=== PATIENT | male | born 1950 | race Caucasian/White ===

== ENCOUNTER 2017-09-30 19:10 | Observation (INO) ==
[2017-09-30] MEDS ORDERED: Aspirin 81 MG TAB.CHEW PO ONE (19:45)
[2017-09-30] MEDS ORDERED: Nitroglycerin 1 INCH/GM PACKET TP ONE (19:45)
--- NOTE | 2017-09-30 19:50 | Emergency Department Note ---
Disposition Clinical Impression: Chest pain Qualifiers: Chest pain type: unspecified Qualified Code(s): R07.9 - Chest pain, unspecified Hypertension Qualifiers: Hypertension type: unspecified Qualified Code(s): I10 - Essential (primary) hypertension Disposition: Admitted As Inpatient Condition: Fair Time of Disposition: 21:24 Chest Pain HPI - General Chief Complaint: ED Chest Pain Stated Complaint: chest pain Time Seen by Provider: 09/30/17 19:26 Source: patient, family Mode of arrival: ambulatory Limitations: no limitations Vital Signs Reviewed: Yes Nursing Notes Reviewed: Yes - History of Present Illness HPI Narrative: 67-year-old male with a history of hypertension diabetes ACS status post CABG and stents on aspirin presents for evaluation of chest pain. Patient states it symptom onset was last night and has been intermittent since then. Patient noted left-sided chest pressure without radiation. Nonexertional. No aggravating or alleviating symptoms noted. Patient states that he has not had any recent cardiac intervention. Denies any nausea vomiting or diaphoresis. No dyspnea. Denies any fevers or cough. Severity scale (1-10): 7 - Related Data Home Medications Medication Instructions Recorded Confirmed Albuterol Sulfate [Proventil Hfa] 2 puff IH Q4H PRN 05/08/15 09/30/17 Aspirin Enteric Coated [Aspirin EC] 81 mg PO DAILY 05/08/15 09/30/17 Colchicine [Colcrys] 0.6 mg PO TID PRN 05/08/15 09/30/17 Hydrocodone/Acetaminophen [[place] 1 tab PO BID PRN 05/08/15 09/30/17 5-325 Tablet] Losartan [Cozaar] 25 mg PO DAILY 05/08/15 09/30/17 Pantoprazole Sodium [Protonix] 40 mg PO QAM 05/08/15 09/30/17 Zolpidem [Ambien] 5 mg PO HS 05/08/15 09/30/17 Glimepiride [Amaryl] 4 mg PO BID 11/18/15 09/30/17 Baclofen [Lioresal] 10 mg PO BID PRN 03/22/16 09/30/17 Allopurinol [Zyloprim] 100 mg PO DAILY 07/12/16 09/30/17 Insulin DETEMIR [Levemir Flextouch] 50 unit SQ HS 07/12/16 09/30/17 Budesonide/Formoterol 160/4.5 2 puff IH BIDR 12/20/16 09/30/17 [Symbicort 160/4.5] Ranitidine HCl [Heartburn Relief] 150 mg PO BID 12/20/16 09/30/17 Gabapentin [Neurontin] 600 mg PO TID 02/28/17 09/30/17 Ezetimibe [Zetia] 10 mg PO DAILY 09/30/17 09/30/17 Fluticasone Propionate Nasal 50 mcg NS BID 09/30/17 09/30/17 [Flonase] Insulin ASPART [Novolog Flexpen] 0 unit SQ TIDAC 09/30/17 09/30/17 Loratadine [Claritin] 10 mg PO DAILY 09/30/17 09/30/17 Metoprolol XL (24 HR) Succ [Toprol 50 mg PO DAILY 09/30/17 09/30/17 XL] Montelukast [Singulair] 10 mg PO DAILY 09/30/17 09/30/17 Allergies Allergy/AdvReac Type Severity Reaction Status Date / Time niacin AdvReac Unknown Flushing Verified 02/28/17 10:19 nitroglycerin AdvReac Unknown Hypotension Verified 02/28/17 10:19 Oxycodone AdvReac Unknown Agitated Verified 02/28/17 10:19 Penicillins AdvReac Unknown Hives Verified 02/28/17 10:19 AMANDO Inhibitors AdvReac Cough Verified 11/13/16 18:34 atorvastatin AdvReac Diarrhea Verified 11/13/16 18:34 ezetimibe [From Zetia] AdvReac Dizziness Verified 11/13/16 18:34 simvastatin AdvReac Dizziness Verified 11/13/16 18:34 All systems ED: reviewed and negative except as stated. Constitutional: Denies: fever Cardiovascular: Reports: chest pain Respiratory: Denies: cough, dyspnea Gastrointestinal: Denies: abdominal pain, nausea, vomiting Chest Pain PMH - Past Medical History Medical history: Reports: arthritis, asthma, coronary artery disease, diabetes, GERD, hyperlipidemia, hypertension Psychiatric history: Reports: anxiety - Social History Smoking Status: Former smoker Alcohol use: Reports: occasionally Drug use: Reports: none Physical Exam - General Limitations: no limitations General appearance: alert, in no apparent distress - Head Head exam: atraumatic, normocephalic, normal inspection - Eye Eye exam: Present: normal appearance, PERRL, EOMI - ENT ENT exam: normal exam, normal oropharynx, mucous membranes moist - Neck Neck exam: Present: normal inspection, full ROM, trachea midline - Chest Chest inspection: Present: normal inspection, symmetric chest wall rise. Absent : tenderness - Respiratory Respiratory exam: Present: normal lung sounds bilaterally. Absent: respiratory distress - Cardiovascular Cardiovascular exam: Present: regular rate, normal rhythm. Absent: systolic murmur - Abdominal Exam Abdominal exam: Present: soft, Non-Tender - Extremities Exam Extremities exam: Present: normal inspection. Absent: pedal edema - Expanded Lower Extremity Exam Neurovascular/Tendon exam: Present: normal capillary refill - Neurological Exam Neurological exam: Present: alert, oriented X3 - Skin Skin exam: Present: warm, dry, intact, normal color Course - Reevaluation(s) Reevaluation #1: Patient seen and examined. Patient states his pain has improved. Patient's blood pressure also responded well to nitroglycerin. Time: 21:24 Vital Signs Temperature 97.8 F 09/30/17 19:11 Pulse Rate 79 09/30/17 19:11 Respiratory Rate 18 09/30/17 19:11 Blood Pressure 210/107 09/30/17 19:11 O2 Sat by Pulse Oximetry 97 09/30/17 19:11 Temperature 97.8 F 09/30/17 19:11 Pulse Rate 82 09/30/17 20:13 Respiratory Rate 16 09/30/17 21:19 Blood Pressure 129/55 09/30/17 21:19 O2 Sat by Pulse Oximetry 96 09/30/17 20:13 Oxygen Delivery Oxygen Delivery Room Air Chest Pain - [facility] Narrative Medical decision making narrative: Patient presented with chief complaint of chest pain. Patient has have a concerning cardiac history. A single troponin was not sufficient to rule out his ACS. Patient did [facility] Patient was treated with nitroglycerin and aspirin. Patient was pain-free following the nitroglycerin. Patient's blood pressure also improved. Given the patient's risk factors as well as elevated heart score. The patient will be admitted to hospice for further evaluation and monitoring. She is pain is not consistent with pulmonary Mozer. Patient's pain is most consistent with his well-established ACS. Patient was not placed on heparin due to no active chest pain as well as negative troponin. - Lab Data Lab results reviewed: Yes I reviewed the patient's lab results. Result diagrams: 09/30/17 19:55 09/30/17 19:55 Lab Results 09/30/17 09/30/17 09/30/17 Range/Units 19:55 19:55 19:55 WBC 9.6 (4.3-11.1) K/mcL RBC 5.16 (4.19-5.50) M/mcL Hgb 15.2 (12.9-16.9) g/dL Hct 45.3 (37.5-50.1) % MCV 87.8 (83.0-100.0) fL MCH 29.5 (28.0-33.3) pg MCHC 33.6 (31.6-35.5) g/dL RDW 13.0 (11.5-14.5) % Plt Count 136 L (140-400) K/mcL MPV 13.0 H (9.4-12.4) fL Immature Gran % 0.7 (0-4) % Seg Neutrophils % 52.4 % Lymphocytes % 36.2 % Monocytes % 7.9 % Eosinophils % 2.0 % Basophils % 0.8 % Neutrophils # 5.0 (1.6-8.9) K/mcL Lymphocytes # 3.5 (0.6-4.6) K/mcL Monocytes # 0.8 (0.0-1.3) K/mcL Eosinophils # 0.2 (0.0-0.6) K/mcL Basophils # 0.1 (0.0-0.2) K/mcL Sodium 138 (136-145) mEq/L Potassium 3.9 (3.5-5.1) mEq/L Chloride 104 (98-107) mEq/L Carbon Dioxide 24 (23-29) mEq/L BUN 14 (8-23) mg/dL Creatinine 1.27 (0.70-1.30) mg/dL Est GFR ( Amer) > 60 (> 60) Est GFR (Non-Af Amer) 56 L (> 60) BUN/Creatinine Ratio 11 (6-26) Glucose 178 H (70-105) mg/dL Calculated Osmolality 291 (280-300) Calcium 9.2 (8.6-10.3) mg/dL Troponin I < 0.03 (< 0.04) ng/mL - Radiology Data Radiology results reviewed: Yes I reviewed the patient's radiology results. - EKG Data EKG attestation: Yes I reviewed and interpreted this EKG. EKG shows normal: sinus rhythm Rate: normal Rhythm: NSR, PVC's Tiro/QRS: normal Q waves: III, aVF T wave inversions noted in: v1, v2, v3 When compared to previous EKG there are: changes noted Interpretation: no acute changes, nonspecific ST-T wave changes Heart Score - Score History: Moderately Suspicious EKG: Non Specific repolarisation Disturbance Age: Greater than 65 Risk Factors: Equal/Greater than 3 risk factor or history of atherosclerotic disease Troponin: Less than normal limit HEART Score Total: 6 S.B.A.R. - S.B.A.RJohn Situation: Demographics Background: Presenting Complaint Assessment: Vital Signs, Course and respsone to treatment, Patient/Family Expectation Recommendation: Barrier(s) to disposition, Recommendation based on pending studies, treatments, or consults S.B.A.RJohn Report Given to: Dr. Morrow S.B.A.RJohn Repor Time: 21:00 Attestation Statement - Attestation Attestation: I examined this patient and my medical decision-making was reviewed with the Resident Physician, Dr. Howard. I agree with the documented findings, disposition and treatment plan as described except to the extent set forth below. Patient is a 67-year-old elderly white male with history of hypertension, diabetes, known urinary disease who presents to emergency today with left-sided chest pain. Pain is nonradiating and not associated with any other symptoms. Patient states pain usually comes on with walking. Patient's been having pain intermittently off and on since yesterday the last episode was a few hours ago. I agree patient's physical exam findings as documented. Patient with elevated blood pressure on arrival. Patient's EKG documented on chart. No sign of STEMI. Patient received aspirin and Nitropaste with resolution of pain. Patient's laboratory evaluation and chest x-ray within normal limits. Patient will be admitted for further evaluation of chest pain case was discussed with the hospitalist who accepted patient for admission.
[2017-09-30 20:03] LABS: Basophils # 0.1 K/mcL (0.0-0.2); Basophils % 0.8 %; Eosinophils # 0.2 K/mcL (0.0-0.6); Hematocrit 45.3 % (37.5-50.1); Hemoglobin 15.2 g/dL (12.9-16.9); Immature Granulocytes % 0.7 % (0-4); Lymphocytes # 3.5 K/mcL (0.6-4.6); Lymphocytes % 36.2 %; Mean Corpuscular HGB Conc 33.6 g/dL (31.6-35.5); Mean Corpuscular Hemoglobin 29.5 pg (28.0-33.3); Mean Corpuscular Volume 87.8 fL (83.0-100.0); Monocytes # 0.8 K/mcL (0.0-1.3); Monocytes % 7.9 %; Platelet Count 136 K/mcL (140-400); Red Blood Count 5.16 M/mcL (4.19-5.50); Segmented Neutrophils % 52.4 %
[2017-09-30 20:42] LABS: BUN/Creatinine Ratio 11 (6-26); Blood Urea Nitrogen 14 mg/dL (8-23); Calcium 9.2 mg/dL (8.6-10.3); Carbon Dioxide 24 mEq/L (23-29); Chloride 104 mEq/L (98-107); Glucose 178 mg/dL (70-105); Osmolality,Calculated 291 (280-300); Potassium 3.9 mEq/L (3.5-5.1); Sodium 138 mEq/L (136-145); eGFR For African Americans > 60 (> 60); eGFR For Non-African Americans 56 (> 60)
[2017-09-30] MEDS ORDERED: Baclofen 10 MG TABLET PO PRN (21:42)
[2017-09-30] MEDS ORDERED: *HR* HYDROcodone/Acet 5/325 mg TABLET PO PRN (21:42)
[2017-09-30] MEDS ORDERED: Colchicine 0.6 MG TABLET PO PRN (21:42)
[2017-09-30] MEDS ORDERED: *HR* Dextrose 50 % in Water (Syg) 50 ML SYRINGE IVP PRN (21:46)
[2017-09-30] MEDS ORDERED: D5% in Water 1,000 ML IVC PRN (21:46)
[2017-09-30] MEDS ORDERED: Dextrose Gel 15 GM/37.5 ML TUBE PO PRN ×4 (21:46→21:49)
--- NOTE | 2017-09-30 21:53 | Internal Med History&Physical ---
Date of Encounter: 09/30/17 Time of Encounter: 21:51 Assessment and Plan (1) Chest pain Current visit: Yes Status: Acute trend trop, CP appears atypical and associated with position changes repeat EKG in the a.m pending CXR results tele further management pending inpatient course Qualifiers: Chest pain type: precordial pain Qualified Code(s): R07.2 - Precordial pain (2) CAD (coronary artery disease) Current visit: Yes Status: Acute known cad s/p stent, CABG Qualifiers: Associated angina: without angina Qualified Code(s): I25.810 - Atherosclerosis of coronary artery bypass graft(s) without angina pectoris (3) Hypertension Current visit: Yes Status: Acute continue BP med Qualifiers: Hypertension type: essential hypertension Qualified Code(s): I10 - Essential (primary) hypertension (4) Diabetes mellitus Current visit: Yes Status: Acute continue levemir, ISS Qualifiers: Qualified Code(s): E11.9 - Type 2 diabetes mellitus without complications; Z79.4 - alf (current) use of insulin; Z79.4 - manager long term care (current) use of insulin; Z79.4 - manager long term care (current) use of insulin; Z79.4 - alf (current ) use of insulin Internal Medicine - H&P: HPI Chief complaint: atypical CP History of present illness: Mr. Gomez is a 67 year old male with hx of DMII, HTN. CAD s/p stents, CABG 5 years ago at [facility] who follows with Dr Dave presents for observation of atypical chest pain. Described left sided chest pain since yesterday evening , comes and goes, worse with leaning on left elbow, worse with bending over to tie shoe lace, lasting for seconds - seems positional but given his cardiac hx, was admitted for observation. EKG personally reviewed with rate 86, T inversions along anterior lead. CXR completed with read pending, unable to pull images up on PACS Past Med Surg Social Fam HX - Past Medical History Medical history: arthritis, asthma, coronary artery disease, diabetes, GERD, hyperlipidemia, hypertension Psychiatric history: anxiety - Past Surgical History Surgical History: other (CABG) - Social History Smoking Status: Former smoker Smokeless Tobacco Status: No Alcohol use: occasionally Drug use: none - Family History Mother Living Status: Hx Family Cardiac Disorders: Yes Hx Family Cancer: Yes Internal Medicine - H&P: Meds Albuterol Sulfate [Proventil Hfa] 2 puff IH Q4H PRN 05/08/15 [History] Aspirin Enteric Coated [Aspirin EC] 81 mg PO DAILY 05/08/15 [History] Colchicine [Colcrys] 0.6 mg PO TID PRN 05/08/15 [History] Hydrocodone/Acetaminophen [[place] 5-325 Tablet] 1 tab PO BID PRN 05/08/15 [ History] Losartan [Cozaar] 25 mg PO DAILY 05/08/15 [History] Pantoprazole Sodium [Protonix] 40 mg PO QAM 05/08/15 [History] Zolpidem [Ambien] 5 mg PO HS 05/08/15 [History] Glimepiride [Amaryl] 4 mg PO BID 11/18/15 [History] Baclofen [Lioresal] 10 mg PO BID PRN 03/22/16 [History] Allopurinol [Zyloprim] 100 mg PO DAILY 07/12/16 [History] Insulin DETEMIR [Levemir Flextouch] 50 unit SQ HS 07/12/16 [History] Budesonide/Formoterol 160/4.5 [Symbicort 160/4.5] 2 puff IH BIDR 12/20/16 [ History] Ranitidine HCl [Heartburn Relief] 150 mg PO BID 12/20/16 [History] Gabapentin [Neurontin] 600 mg PO TID 02/28/17 [History] Ezetimibe [Zetia] 10 mg PO DAILY 09/30/17 [History] Fluticasone Propionate Nasal [Flonase] 50 mcg NS BID 09/30/17 [History] Insulin ASPART [Novolog Flexpen] 0 unit SQ TIDAC 09/30/17 [History] Loratadine [Claritin] 10 mg PO DAILY 09/30/17 [History] Metoprolol XL (24 HR) Succ [Toprol XL] 50 mg PO DAILY 09/30/17 [History] Montelukast [Singulair] 10 mg PO DAILY 09/30/17 [History] 3 Allergy/AdvReac Type Severity Reaction Status Date / Time niacin AdvReac Unknown [place] Verified 02/28/17 10:19 nitroglycerin AdvReac Unknown Hypotension Verified 02/28/17 10:19 Oxycodone AdvReac Unknown Agitated Verified 02/28/17 10:19 Penicillins AdvReac Unknown Hives Verified 02/28/17 10:19 AMANDO Inhibitors AdvReac Cough Verified 11/13/16 18:34 atorvastatin AdvReac Diarrhea Verified 11/13/16 18:34 ezetimibe [From Zetia] AdvReac Dizziness Verified 11/13/16 18:34 simvastatin AdvReac Dizziness Verified 11/13/16 18:34 All Systems PM: A 10-system review of systems was performed and is negative for pertinent findings except as documented above in the HPI. Review of systems: ROS 14 point review of systems reviewed as best as possible given presentation. Pertinent positive or negative as per HPI or otherwise reviewed as negative - Constitutional Vitals: Temp Pulse Resp BP Pulse Ox 97.8 F 82 16 129/55 96 09/30/17 19:11 09/30/17 20:13 09/30/17 21:19 09/30/17 21:19 09/30/17 20:13 Internal Med - H&P Results - Labs CBC & Chem 7: 09/30/17 19:55 09/30/17 19:55
[2017-09-30] MEDS ORDERED: Insulin DETEMIR 100 UNIT/ML X5UNITS SQ SCH (22:45)
[2017-09-30] MEDS: Budesonide/Formoterol 160/4.5 MDI IH SCH (23:24)
[2017-09-30] MEDS: Insulin LISPRO 300 UNITS/3 ML VIAL SQ SCH (23:37)
[2017-10-01] MEDS: Gabapentin 300 MG CAPSULE PO SCH ×3 (00:15→13:56)
[2017-10-01] MEDS: Fluticasone Propionate Nasal 50 MCG/SPRAY BOTTLE NS SCH ×2 (00:15→13:50)
[2017-10-01] MEDS ORDERED: Fluticasone Propionate Nasal 50 MCG/SPRAY BOTTLE NS SCH (09:00)
[2017-10-01] MEDS ORDERED: Metoprolol XL (24 HR) Succ 50 MG TAB.ER.24H PO SCH (09:00)
[2017-10-01] MEDS ORDERED: Loratadine 10 MG TABLET PO SCH (09:00)
[2017-10-01] MEDS ORDERED: Aspirin Enteric Coated 81 MG Tablet PO SCH (09:00)
[2017-10-01] MEDS ORDERED: NON-FORMULARY MEDICATION 1 EACH EACH (Gabapentin [Neurontin] 600 MG) PO SCH (09:00)
[2017-10-01] MEDS ORDERED: Famotidine 20 MG TABLET PO SCH (09:00)
[2017-10-01] MEDS ORDERED: (Ezetimibe [Zetia] 10 MG) PO SCH (09:00)
[2017-10-01] MEDS: Insulin LISPRO 300 UNITS/3 ML VIAL SQ SCH ×2 (09:24→11:46)
[2017-10-01] MEDS ORDERED: Regadenoson 0.4 MG/5 ML SYRINGE IVP ONE (09:47)
[2017-10-01] MEDS: Budesonide/Formoterol 160/4.5 MDI IH SCH (10:58)
[2017-10-01 15:22] VITALS: BP 139/83
--- NOTE | 2017-10-01 15:30 | Discharge Summary ---
Date of Encounter: 10/01/17 Time of Encounter: 15:28 - Discharge Diagnosis (1) CAD (coronary artery disease) Priority: Primary Status: Acute Comments: Patient is pain-free. He had atypical chest pain reproducible with movement or palpation to his left chest wall. He reports some new activity of swimming and working out at the gym. Patient has known CAD status post stent and CABG Troponins were negative 3 sets Stress test was negative as per report from [employer] EKG reviewed Chest x-ray nothing acute Patient to follow-up with PCP and [employer] as previously scheduled He states he is leaving for [place] in the morning. Qualifiers: Associated angina: without angina Qualified Code(s): I25.810 - Atherosclerosis of coronary artery bypass graft(s) without angina pectoris (2) Chest pain Priority: Primary Status: Acute Comments: Atypical chest pain associated with position changes, arm movements and palpation to the left chest wall. Chest x-ray was negative EKG reviewed and unremarkable Stress test and troponins completed Qualifiers: Chest pain type: precordial pain Qualified Code(s): R07.2 - Precordial pain (3) Diabetes mellitus Priority: Secondary Status: Chronic Comments: Resume home regime for diabetes mellitus Qualifiers: Diabetes mellitus type: type 2 Diabetes mellitus complication status: with unspecified complications Diabetes mellitus buttermaker helper insulin use: with fdc use Qualified Code(s): E11.8 - Type 2 diabetes mellitus with unspecified complications; Z79.4 - residential (current) use of insulin; Z79.4 - manager long term care ( current) use of insulin; Z79.4 - residential (current) use of insulin; Z79.4 - manager long term care (current) use of insulin (4) Hypertension Priority: Secondary Status: Chronic Comments: Blood pressure stable continue home medications Qualifiers: Hypertension type: essential hypertension Qualified Code(s): I10 - Essential (primary) hypertension (5) Lumbar radiculopathy Priority: Secondary Status: Chronic (6) Lumbar stenosis Priority: Secondary Status: Chronic Qualifiers: Neurogenic claudication status: unspecified Qualified Code(s): M48.061 - Spinal stenosis, lumbar region without neurogenic claudication - Discharge Medications Home Medications: Albuterol Sulfate [Proventil Hfa] 2 puff IH Q4H PRN 05/08/15 [History] Aspirin Enteric Coated [Aspirin EC] 81 mg PO DAILY 05/08/15 [History] Colchicine [Colcrys] 0.6 mg PO TID PRN 05/08/15 [History] Hydrocodone/Acetaminophen [[place] 5-325 Tablet] 1 tab PO BID PRN 05/08/15 [ History] Losartan [Cozaar] 25 mg PO DAILY 05/08/15 [History] Pantoprazole Sodium [Protonix] 40 mg PO QAM 05/08/15 [History] Zolpidem [Ambien] 5 mg PO HS 05/08/15 [History] Glimepiride [Amaryl] 4 mg PO BID 11/18/15 [History] Baclofen [Lioresal] 10 mg PO BID PRN 03/22/16 [History] Allopurinol [Zyloprim] 100 mg PO DAILY 07/12/16 [History] Insulin DETEMIR [Levemir Flextouch] 50 unit SQ HS 07/12/16 [History] Budesonide/Formoterol 160/4.5 [Symbicort 160/4.5] 2 puff IH BIDR 12/20/16 [ History] Ranitidine HCl [Heartburn Relief] 150 mg PO BID 12/20/16 [History] Gabapentin [Neurontin] 600 mg PO TID 02/28/17 [History] Ezetimibe [Zetia] 10 mg PO DAILY 09/30/17 [History] Fluticasone Propionate Nasal [Flonase] 50 mcg NS BID 09/30/17 [History] Insulin ASPART [Novolog Flexpen] 0 unit SQ TIDAC 09/30/17 [History] Loratadine [Claritin] 10 mg PO DAILY 09/30/17 [History] Metoprolol XL (24 HR) Succ [Toprol Xl] 50 mg PO DAILY 09/30/17 [History] Montelukast [Singulair] 10 mg PO DAILY 09/30/17 [History] Allergies/Adverse Reactions: 3 Allergy/AdvReac Type Severity Reaction Status Date / Time niacin AdvReac Unknown [place] Verified 02/28/17 10:19 nitroglycerin AdvReac Unknown Hypotension Verified 02/28/17 10:19 Oxycodone AdvReac Unknown Agitated Verified 02/28/17 10:19 Penicillins AdvReac Unknown Hives Verified 02/28/17 10:19 AMANDO Inhibitors AdvReac Cough Verified 11/13/16 18:34 atorvastatin AdvReac Diarrhea Verified 11/13/16 18:34 ezetimibe [From Zetia] AdvReac Dizziness Verified 11/13/16 18:34 simvastatin AdvReac Dizziness Verified 11/13/16 18:34 Procedures/tests Complete & Pending: Procedures Performed prior 72 hours Category Date Time Status NM deisy perf SPECT multi [NM] Routine Exams 10/01/17 07:46 Taken EKG [ECG 12 lead ECG] [ECG] AM 0600 Y 10/01/17 06:00 Ordered SP pharm nuclear stress Routine Y 10/01/17 07:45 Completed Date of admission: 09/30/17 21:05 Primary care physician: Sidney Mata CNP Discharging clinician: Shantell Castañeda Anticipated date of discharge: 10/01/17 - Patient Status Disposition: Home, Self-Care Condition: Fair Functional capacity at discharge: independent ambulation Overall status at discharge: patient is back to baseline - Discharge Instructions Instructions: Influenza Virus Vaccine (Injection), Chest Pain (DC), Diabetes Mellitus Type 2 in Adults (DC), Chronic Hypertension (DC) Follow Up With: Sidney Mata CNP [Primary Care Provider] - Additional Instructions: Follow-up with PCP, chest pain is atypical and reproducible so recommend Tylenol extra strength as needed as he is to avoid NSAIDs - Diet and Activity Activity: resume usual activities as tolerated Diet: advance to your usual diet Hospital course: Mr. Gomez is a 67 year old male - Time Spent with Patient Total time spent providing and/or coordinating discharge services: - Constitutional Vitals: Temp Pulse Resp BP Pulse Ox 97.8 F 70 17 139/83 96 10/01/17 15:16 10/01/17 15:16 10/01/17 15:16 10/01/17 15:16 10/01/17 15:16
[2017-10-01] MEDS ORDERED: NON-FORMULARY MEDICATION 1 EACH EACH (Insulin Detemir [Levemir Flextouch] 50 UNIT) SQ SCH (21:00)
[2017-10-01] MEDS ORDERED: Insulin LISPRO 300 UNITS/3 ML VIAL SQ SCH (21:00)
--- NOTE | 2017-10-03 16:18 | Electrocardiograph Report ---
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
--- NOTE | 2017-10-03 16:29 | Electrocardiograph Report ---
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
== END 2017-10-01 16:10 | disposition home or self-care (01) ==
LOC: 3BNU 19:10 → EMEROO 19:10 → 3BNU 21:28
PROVIDERS: ADMIT Internal Medicine; ATTEND Registered Nurse

== ENCOUNTER 2018-05-07 11:55 | Observation (INO) ==
[2018-05-07] MEDS ORDERED: Ipratropium/Albuterol Neb 3 ML IH ONE (12:23)
[2018-05-07] MEDS ORDERED: 0.9 % Sodium Chloride 500 ML IVC ONE (12:24)
--- NOTE | 2018-05-07 12:25 | Emergency Department Note ---
Disposition Clinical Impression: Near syncope Chest pain Qualifiers: Chest pain type: unspecified Qualified Code(s): R07.9 - Chest pain, unspecified Disposition: Admitted As Inpatient Condition: Good Referrals: Berta Perez [Primary Care Provider] - Forms: ED Satisfaction Letter General Adult HPI - General Chief complaint: ED Shortness of Breath/Dyspnea Stated complaint: SOB Time Seen by Provider: 05/07/18 12:00 Source: patient Limitations: no limitations Nursing Notes Reviewed: Yes Vital Signs Reviewed: Yes - History of Present Illness HPI Narrative: The patient is a 67-year-old male with history of diabetes, hypertension, coronary artery disease, stroke, coronary artery bypass surgery, and AAA. He presented with 2 days of lightheadedness with standing. He also complains of 1- 2 months of dysphagia, nausea, intermittent left-sided chest pain and shortness of breath. He states the chest pain is left-sided and intermittent and it only occurs with exertion. It never occurred at rest. It is associated with shortness of breath. He denies chest pain at this time. 5 weeks ago he had an EGD performed due to the dysphagia and was told this was normal. He denied shortness of breath, hematochezia, melena, vomiting, diarrhea, cough. He stated he has had some abdominal pain and nausea for 1-2 months as well that started after he initiated Trulicity treatment for his diabetes. He skipped his most recent dose and the symptoms improved. He is on blood thinners Plavix and aspirin. Pain Scale: 0 - Related Data Home Medications Medication Instructions Recorded Confirmed Albuterol Sulfate [Proventil Hfa] 2 puff IH Q4H PRN 05/08/15 09/30/17 Aspirin Enteric Coated [Aspirin EC] 81 mg PO DAILY 05/08/15 09/30/17 Colchicine [Colcrys] 0.6 mg PO TID PRN 05/08/15 09/30/17 Hydrocodone/Acetaminophen [[place] 1 tab PO BID PRN 05/08/15 09/30/17 5-325 Tablet] Losartan [Cozaar] 25 mg PO DAILY 05/08/15 09/30/17 Pantoprazole Sodium [Protonix] 40 mg PO QAM 05/08/15 09/30/17 Zolpidem [Ambien] 5 mg PO HS 05/08/15 09/30/17 Glimepiride [Amaryl] 4 mg PO BID 11/18/15 09/30/17 Baclofen [Lioresal] 10 mg PO BID PRN 03/22/16 09/30/17 Allopurinol [Zyloprim] 100 mg PO DAILY 07/12/16 09/30/17 Insulin DETEMIR [Levemir Flextouch] 50 unit SQ HS 07/12/16 09/30/17 Budesonide/Formoterol 160/4.5 2 puff IH BIDR 12/20/16 09/30/17 [Symbicort 160/4.5] Ranitidine HCl [Heartburn Relief] 150 mg PO BID 12/20/16 09/30/17 Gabapentin [Neurontin] 600 mg PO TID 02/28/17 09/30/17 Ezetimibe [Zetia] 10 mg PO DAILY 09/30/17 09/30/17 Fluticasone Propionate Nasal 50 mcg NS BID 09/30/17 09/30/17 [Flonase] Insulin ASPART [Novolog Flexpen] 0 unit SQ TIDAC 09/30/17 09/30/17 Loratadine [Claritin] 10 mg PO DAILY 09/30/17 09/30/17 Metoprolol XL (24 HR) Succ [Toprol 50 mg PO DAILY 09/30/17 09/30/17 Xl] Montelukast [Singulair] 10 mg PO DAILY 09/30/17 09/30/17 Previous Rx's Medication Instructions Recorded Clopidogrel [Plavix] 75 mg PO DAILY #30 tablet 12/02/17 Allergies Allergy/AdvReac Type Severity Reaction Status Date / Time niacin AdvReac Unknown Flushing Verified 02/28/17 10:19 nitroglycerin AdvReac Unknown Hypotension Verified 02/28/17 10:19 Oxycodone AdvReac Unknown Agitated Verified 02/28/17 10:19 Penicillins AdvReac Unknown Hives Verified 02/28/17 10:19 AMANDO Inhibitors AdvReac Cough Verified 11/13/16 18:34 atorvastatin AdvReac Diarrhea Verified 11/13/16 18:34 ezetimibe [From Zetia] AdvReac Dizziness Verified 11/13/16 18:34 simvastatin AdvReac Dizziness Verified 11/13/16 18:34 Review of Systems: CONSTITUTIONAL: No weight loss, fever, chills, weakness or fatigue. HEENT: Eyes: No visual changes. Ears, Nose, Throat: No hearing loss, difficulty talking or unable to swallow. SKIN: No rash or itching. CARDIOVASCULAR: Chest pain RESPIRATORY: Shortness of breath with exertion GASTROINTESTINAL: No anorexia, nausea, vomiting or diarrhea. No abdominal pain or blood. GENITOURINARY: No burning on urination or hematuria. NEUROLOGICAL: Dizziness with worse with exertion No headache, syncope, paralysis , ataxia, numbness or tingling in the extremities. No change in bowel or bladder control. MUSCULOSKELETAL: No muscle pain, back pain, joint pain or stiffness. Past Medical History - Past Medical History Medical history: Reports: arthritis, asthma, coronary artery disease, diabetes, GERD, hyperlipidemia, hypertension, other Surgical history: Reports: other Psychiatric history: Reports: anxiety - Social History Smoking Status: Former smoker Smokeless Tobacco Status: No Alcohol use: Reports: occasionally Drug use: Reports: none Physical Exam General: Well appearing, nontoxic, no acute distress Head: Normocephalic Atraumatic Eyes: PERRL, EOMI ENT: Airway patent, no stridor Neck: supple, no meningismus Chest: Mild expiratory wheeze Cardiac: Regular rhythm Abdomen: soft, nontender, nondistended; no guarding, rebound, or tenderness to percussion Musculoskeletal: Calves symmetric, nontender Skin: No rash, normal skin tone Neuro: Alert and Oriented to person, place, and time; No focal deficit, CN 2-12 symmetric and intact - General Limitations: no limitations General appearance: alert Course - Reevaluation(s) Reevaluation #1: Patient is adjacent medical breast. Patient does have evidence of acute kidney injury. Patient was given fluids and states that he has had a mild improvement. Orthostatics were done and are negative. Patient was ambulatory around the emergency department but had recurrent symptoms that he thought might be also related to low blood sugar. Glucose was checked and greater than 120. The patient does have significant cardiac history. He has had intermittent chest pains with exertion. He now has dizziness with exertion. Patient be admitted for further evaluation and management. - Consultations Consultation #1: Discussed with hospitalist. Patient accepted for admission. Vital Signs Temperature 97.7 F 05/07/18 11:57 Pulse Rate 65 05/07/18 11:57 Respiratory Rate 16 05/07/18 11:57 Blood Pressure 168/82 05/07/18 11:57 O2 Sat by Pulse Oximetry 97 05/07/18 11:57 Temperature 97.7 F 05/07/18 12:04 Pulse Rate 57 05/07/18 15:19 Respiratory Rate 16 05/07/18 15:19 Blood Pressure 157/86 05/07/18 15:19 O2 Sat by Pulse Oximetry 97 05/07/18 15:19 Oxygen Delivery Oxygen Delivery Room Air Medical Decision Making - Medical Records Medical records reviewed: Yes I reviewed the patient's medical records. - Lab Data Lab results reviewed: Yes I reviewed the patient's lab results. Result diagrams: 05/07/18 12:12 05/07/18 12:12 Lab Results 05/07/18 05/07/18 05/07/18 Range/Units 12:12 12:12 12:12 WBC 8.6 (4.3-11.1) K/mcL RBC 5.36 (4.19-5.50) M/mcL Hgb 16.1 (12.9-16.9) g/dL Hct 46.9 (37.5-50.1) % MCV 87.5 (83.0-100.0) fL MCH 30.0 (28.0-33.3) pg MCHC 34.3 (31.6-35.5) g/dL RDW 13.4 (11.5-14.5) % Plt Count 116 L (140-400) K/mcL MPV 13.1 H (9.4-12.4) fL Immature Gran % 0.9 (0-4) % Seg Neutrophils % 45.0 % Lymphocytes % 44.8 % Monocytes % 5.7 % Eosinophils % 2.4 % Basophils % 1.2 % Neutrophils # 3.9 (1.6-8.9) K/mcL Lymphocytes # 3.9 (0.6-4.6) K/mcL Monocytes # 0.5 (0.0-1.3) K/mcL Eosinophils # 0.2 (0.0-0.6) K/mcL Basophils # 0.1 (0.0-0.2) K/mcL Sodium 139 (136-145) mEq/L Potassium 4.2 (3.5-5.1) mEq/L Chloride 105 (98-107) mEq/L Carbon Dioxide 22 L (23-29) mEq/L BUN 17 (8-23) mg/dL Creatinine 1.45 H (0.70-1.30) mg/dL Est GFR ( Amer) 58 L (> 60) Est GFR (Non-Af Amer) 48 L (> 60) BUN/Creatinine Ratio 12 (6-26) Glucose 220 H (70-105) mg/dL Calculated Osmolality 296 (280-300) Calcium 9.5 (8.6-10.3) mg/dL Troponin I < 0.03 (< 0.04) ng/mL B-Natriuretic Peptide 27 (Less than 100) pg/mL - Radiology Data Radiology results reviewed: Yes I reviewed the patient's radiology results. - EKG Data EKG #1 EKG attestation: Yes I reviewed and interpreted this EKG. EKG results narrative: Sinus rhythm with heart rate of 65. VA 178. QRS 124. QTC 429. No significant ST elevations or depressions.
[2018-05-07 12:37] LABS: Basophils # 0.1 K/mcL (0.0-0.2); Basophils % 1.2 %; Eosinophils # 0.2 K/mcL (0.0-0.6); Eosinophils % 2.4 %; Hematocrit 46.9 % (37.5-50.1); Hemoglobin 16.1 g/dL (12.9-16.9); Immature Granulocytes % 0.9 % (0-4); Lymphocytes # 3.9 K/mcL (0.6-4.6); Lymphocytes % 44.8 %; Mean Corpuscular HGB Conc 34.3 g/dL (31.6-35.5); Mean Corpuscular Volume 87.5 fL (83.0-100.0); Mean Platelet Volume 13.1 fL (9.4-12.4); Monocytes # 0.5 K/mcL (0.0-1.3); Monocytes % 5.7 %; Neutrophils # 3.9 K/mcL (1.6-8.9); Platelet Count 116 K/mcL (140-400); Red Blood Count 5.36 M/mcL (4.19-5.50); Red Cell Distribution Width 13.4 % (11.5-14.5)
[2018-05-07 13:01] LABS: BUN/Creatinine Ratio 12 (6-26); Blood Urea Nitrogen 17 mg/dL (8-23); Calcium 9.5 mg/dL (8.6-10.3); Carbon Dioxide 22 mEq/L (23-29); Chloride 105 mEq/L (98-107); Glucose 220 mg/dL (70-105); Osmolality,Calculated 296 (280-300); Potassium 4.2 mEq/L (3.5-5.1); Sodium 139 mEq/L (136-145); eGFR For Non-African Americans 48 (> 60)
[2018-05-07 13:02] LABS: Troponin I < 0.03 ng/mL (< 0.04)
[2018-05-07] MEDS ORDERED: 0.9 % Sodium Chloride 1,000 ML IVC ONE (14:39)
[2018-05-07] MEDS ORDERED: Acetaminophen 325 MG TABLET PO PRN (16:52)
[2018-05-07] MEDS ORDERED: Naloxone 0.4 MG/ML INJ IVP PRN (16:52)
--- NOTE | 2018-05-07 17:30 | Internal Med History&Physical ---
Date of Encounter: 05/07/18 Time of Encounter: 17:10 Internal Medicine - H&P: HPI Chief complaint: generalized weakness Admitted From: Home History of present illness: Mr. Gomez is a 67 year old male with past medical history of CAD status post CABG, diabetes, hypertension, CVA, ex-smoker, presented to the ED with one-week history of generalized weakness. He states that he has been progressively feeling weak without any focal complaints, including chest pain, shows of breath , cough, sputum production, abdominal pain, change in bowel habits, dysuria, or hematuria. Does not recall having any orthopnea, PND, or significant leg swelling. He does admits to not drinking as much as he urinates as he noticed that he has been urinating more frequently for the last few weeks. He also states that he feels lightheaded at times when ambulating but did not actually fall, suffer head injury, or lose consciousness. No headache, blurring of vision, focal weakness/numbness, facial droop, dysarthria. He has had dysphagia to both solid and liquids and recently had a form of testing that was -ve (not EGD). No fever/chills, nausea or vomiting, sore throat, runny nose, runny eyes , joint pain or rash. Denies any sick contact. In the ED, he was afebrile and hemodynamically stable. Orthostatic vitals that was checked after IV fluid was normal. CBC was normal without platelet count of 116 (close to baseline), Cr 1.45 (was 1.18 3 months ago). Troponin and BNP were unremarkable. Chest x-ray was clear of any consolidation. He was given 2L of NS and admitted for further management. Past Med Surg Social Fam HX - Past Medical History Attestation: Yes The following information was validated with the patient. Medical history: arthritis, asthma, coronary artery disease, diabetes, GERD, hyperlipidemia, hypertension, other Additional medical history: Painter's Palsy Psychiatric history: anxiety - Past Surgical History Surgical History: other Additional surgical history: CABG 13 - Social History Smoking Status: Former smoker Smokeless Tobacco Status: No Alcohol use: occasionally Drug use: none - Family History Mother Living Status: Hx Family Cardiac Disorders: Yes Hx Family Respiratory Disorders: No Hx Family Cancer: Yes Hx Family GI Disorders: No Hx Family Endocrine Disorder: Yes (DM) Hx Family Neuromuscular Disorders: No Hx Family Neurologic Disorders: No Hx Family HEENT Disorders: No Hx Family Autoimmune Disorders: No Father Adopted: No Family Member Ethnicity: Non- Living Status: Hx Family Cardiac Disorders: Yes (HEART ATTACK) Hx Family Respiratory Disorders: No Hx Family Cancer: No Hx Family GI Disorders: No Hx Family Endocrine Disorder: No Hx Family Neuromuscular Disorders: No Hx Family Neurologic Disorders: No Hx Family HEENT Disorders: No Hx Family Autoimmune Disorders: No Internal Medicine - H&P: Meds Albuterol Sulfate [Proventil Hfa] 2 puff IH Q4H PRN 05/08/15 [History] Aspirin Enteric Coated [Aspirin EC] 81 mg PO DAILY 05/08/15 [History] Colchicine [Colcrys] 0.6 mg PO TID PRN 05/08/15 [History] Hydrocodone/Acetaminophen [[place] 5-325 Tablet] 1 tab PO BID PRN 05/08/15 [ History] Losartan [Cozaar] 25 mg PO DAILY 05/08/15 [History] Pantoprazole Sodium [Protonix] 40 mg PO QAM 05/08/15 [History] Zolpidem [Ambien] 5 mg PO HS 05/08/15 [History] Glimepiride [Amaryl] 4 mg PO BID 11/18/15 [History] Baclofen [Lioresal] 10 mg PO BID PRN 03/22/16 [History] Allopurinol [Zyloprim] 100 mg PO DAILY 07/12/16 [History] Insulin DETEMIR [Levemir Flextouch] 50 unit SQ HS 07/12/16 [History] Budesonide/Formoterol 160/4.5 [Symbicort 160/4.5] 2 puff IH BIDR 12/20/16 [ History] Ranitidine HCl [Heartburn Relief] 150 mg PO BID 12/20/16 [History] Gabapentin [Neurontin] 600 mg PO TID 02/28/17 [History] Ezetimibe [Zetia] 10 mg PO DAILY 09/30/17 [History] Fluticasone Propionate Nasal [Flonase] 50 mcg NS BID 09/30/17 [History] Insulin ASPART [Novolog Flexpen] 0 unit SQ TIDAC 09/30/17 [History] Loratadine [Claritin] 10 mg PO DAILY 09/30/17 [History] Metoprolol XL (24 HR) Succ [Toprol Xl] 50 mg PO DAILY 09/30/17 [History] Montelukast [Singulair] 10 mg PO DAILY 09/30/17 [History] Clopidogrel [Plavix] 75 mg PO DAILY #30 tablet 12/02/17 [Rx] 3 Allergy/AdvReac Type Severity Reaction Status Date / Time niacin AdvReac Unknown Flushing Verified 02/28/17 10:19 nitroglycerin AdvReac Unknown Hypotension Verified 02/28/17 10:19 Oxycodone AdvReac Unknown Agitated Verified 02/28/17 10:19 Penicillins AdvReac Unknown Hives Verified 02/28/17 10:19 AMANDO Inhibitors AdvReac Cough Verified 11/13/16 18:34 atorvastatin AdvReac Diarrhea Verified 11/13/16 18:34 ezetimibe [From Zetia] AdvReac Dizziness Verified 11/13/16 18:34 simvastatin AdvReac Dizziness Verified 11/13/16 18:34 All Systems PM: A 10-system review of systems was performed and is negative for pertinent findings except as documented above in the HPI. - Constitutional Vitals: Temp Pulse Resp BP Pulse Ox 97.7 F 59 16 162/85 100 05/07/18 12:04 05/07/18 17:09 05/07/18 17:09 05/07/18 17:09 05/07/18 17:09 Exam: General: Alert and oriented, not in acute distress. HEENT:EOMI, pupils equal, round and reactive. Anicteric sclera Cardiovascular:Normal S1 & S2, No JVD. Pulse regular. No LE edema Lungs: clear to auscultation, no wheezes/rales Abdomen:Soft, non-tender, no rigidity. Extremities:No deformity or swelling Neurological: CN II-XII intact, power and sensation fully intact in all 4 limbs. No cerebellar signs, pronator drift -ve, Babinski downgoing bilaterally. Skin:Normal color, no rash, no lesions. Pulses:Carotid and radial pulses normal +2. Rest of the physical exam is non contributory Internal Med - H&P Results - Labs CBC & Chem 7: 05/07/18 12:12 05/07/18 12:12 - Assessment and plan (1) Generalized weakness Current Visit: Yes Status: Acute Assessment and plan: unclear etiology, differentials considered include dehydration (slightly elevated Cr), ACS, heart failure, bacterial or viral infection No leukocytosis, no evidence of consolidation on CXR, denies any urinary or URI symptoms or sick contacts troponin -ve, EKG NSR without ST elevations BNP normal given 2L IVF in the ED, will monitor Cr tomorrow check another troponin last stress test 09/2017 did not show any evidence of ischemia, relatively recent Echo 01/2017: EF 50%, mild LV diastolic dysfunction, mild-moderate MR -> will repeat to see if there is a decrease in EF or progression in MR PT/OT eval in the morning (2) CAD (coronary artery disease) Current Visit: No Status: Acute Assessment and plan: denies any anginal symptoms without positive EKG findings resume home meds once reconciled echo as above Qualifiers: Coronary Disease-Associated Artery/Lesion type: unspecified vessel or lesion type [place] vs. transplanted heart: unspecified whether [place] or transplanted heart Associated angina: without angina Qualified Code(s): I25.10 - Atherosclerotic heart disease of [place] coronary artery without angina pectoris (3) Diabetes mellitus Current Visit: No Status: Chronic Assessment and plan: on lantus 50U at HS and humalog will cover with 40 of levemir with humalog 10U TIDWM low dose sliding scale accuchecks AC+HS, ADA diet Qualifiers: Diabetes mellitus type: type 2 Diabetes mellitus prison insulin use: with termite control service representative use Diabetes mellitus complication status: without complication Qualified Code(s): E11.9 - Type 2 diabetes mellitus without complications; Z79.4 - vermin exterminator (current) use of insulin; Z79.4 - alf ( current) use of insulin; Z79.4 - vermin exterminator (current) use of insulin; Z79.4 - vermin exterminator (current) use of insulin (4) Gout Current Visit: No Status: Acute Assessment and plan: resume home meds once reconciled Qualifiers: Gout site: knee Gout etiology: unspecified cause Chronicity: acute Laterality: right Qualified Code(s): M10.9 - Gout, unspecified (5) Hypertension Current Visit: No Status: Chronic Assessment and plan: resume home meds once reconciled Qualifiers: Hypertension type: essential hypertension Qualified Code(s): I10 - Essential (primary) hypertension (6) DVT prophylaxis Current Visit: Yes Status: Acute Assessment and plan: SQ heparin - Time Spent With Patient Total time spent is greater than 50% in coordination of care (as documented) at patient's floor/unit and/or counseling patient: Greater than 35 minutes
[2018-05-07] MEDS ORDERED: Dextrose Gel 15 GM/37.5 ML TUBE PO PRN ×2 (17:38)
[2018-05-07] MEDS ORDERED: *HR* Dextrose 50 % in Water (Syg) 50 ML SYRINGE IVP PRN (17:38)
[2018-05-07] MEDS ORDERED: D5% in Water 1,000 ML IVC PRN (17:38)
[2018-05-07] MEDS: *HR* Heparin 5,000 UNIT/ML VIAL SQ SCH (18:09)
[2018-05-07] MEDS ORDERED: Insulin LISPRO 300 UNITS/3 ML VIAL SQ SCH (21:00)
[2018-05-07] MEDS ORDERED: Insulin DETEMIR 100 UNIT/ML X5UNITS SQ SCH (21:00)
[2018-05-07] MEDS: Gabapentin 300 MG CAPSULE PO SCH (23:13)
[2018-05-08] MEDS: *HR* Heparin 5,000 UNIT/ML VIAL SQ SCH (05:38)
[2018-05-08 07:20] LABS: Basophils # 0.1 K/mcL (0.0-0.2); Basophils % 1.1 %; Eosinophils # 0.3 K/mcL (0.0-0.6); Eosinophils % 3.8 %; Hematocrit 41.9 % (37.5-50.1); Immature Granulocytes % 0.8 % (0-4); Lymphocytes # 3.1 K/mcL (0.6-4.6); Lymphocytes % 44.2 %; Mean Corpuscular HGB Conc 34.1 g/dL (31.6-35.5); Mean Corpuscular Hemoglobin 29.5 pg (28.0-33.3); Mean Corpuscular Volume 86.4 fL (83.0-100.0); Mean Platelet Volume 12.9 fL (9.4-12.4); Monocytes # 0.5 K/mcL (0.0-1.3); Monocytes % 6.6 %; Neutrophils # 3.1 K/mcL (1.6-8.9); Red Blood Count 4.85 M/mcL (4.19-5.50); Red Cell Distribution Width 13.5 % (11.5-14.5); Segmented Neutrophils % 43.5 %
[2018-05-08 07:22] LABS: Estimated Average Glucose 174 mg/dl; Hemoglobin 14.3 g/dL (12.9-16.9); Hemoglobin A1C 7.7 %; Platelet Count 97 K/mcL (140-400)
[2018-05-08 07:41] LABS: BUN/Creatinine Ratio 11 (6-26); Blood Urea Nitrogen 14 mg/dL (8-23); Calcium 8.9 mg/dL (8.6-10.3); Carbon Dioxide 26 mEq/L (23-29); Chloride 107 mEq/L (98-107); Glucose 123 mg/dL (70-105); Magnesium 1.7 mg/dL (1.6-2.6); Osmolality,Calculated 290 (280-300); Potassium 3.8 mEq/L (3.5-5.1); Sodium 139 mEq/L (136-145); eGFR For Non-African Americans 56 (> 60)
[2018-05-08] MEDS: Insulin LISPRO 300 UNITS/3 ML VIAL SQ SCH ×6 (08:13→17:19)
[2018-05-08] MEDS: Gabapentin 300 MG CAPSULE PO SCH (08:19)
[2018-05-08] MEDS ORDERED: Colchicine 0.6 MG TABLET PO PRN (12:47)
[2018-05-08 14:36] VITALS: BP 157/76
[2018-05-08] MEDS ORDERED: Gabapentin 300 MG CAPSULE PO SCH (15:00)
--- NOTE | 2018-05-08 16:24 | Discharge Summary ---
- NOTES TO OUTPATIENT PROVIDER Notes to Outpatient Provider: Patient was admitted for generalized weakness in the setting of mild kidney injury. Potentially due to his poor oral intake and polyuria from hyperglycemia. A1c 7.7. Clinically improved with IV fluid. He had an echocardiogram (as the last one was about ~ 1 year ago which showed low normal EF) and did not show any significant changes from his previous one. Date of Encounter: 05/08/18 Time of Encounter: 12:00 - Discharge Diagnosis (1) Generalized weakness Priority: Primary Status: Acute (2) CAD (coronary artery disease) Priority: Secondary Status: Acute Qualifiers: Coronary Disease-Associated Artery/Lesion type: unspecified vessel or lesion type [place] vs. transplanted heart: unspecified whether [place] or transplanted heart Associated angina: without angina Qualified Code(s): I25.10 - Atherosclerotic heart disease of [place] coronary artery without angina pectoris (3) Diabetes mellitus Priority: Secondary Status: Chronic Qualifiers: Diabetes mellitus type: type 2 Diabetes mellitus termite treater helper insulin use: with senior care use Diabetes mellitus complication status: without complication Qualified Code(s): E11.9 - Type 2 diabetes mellitus without complications; Z79.4 - [facility] (current) use of insulin; Z79.4 - intermodal dispatcher ( current) use of insulin; Z79.4 - intermodal dispatcher (current) use of insulin; Z79.4 - intermodal dispatcher (current) use of insulin (4) Gout Priority: Secondary Status: Acute Qualifiers: Gout site: knee Gout etiology: unspecified cause Chronicity: acute Laterality: right Qualified Code(s): M10.9 - Gout, unspecified (5) Hypertension Priority: Secondary Status: Chronic Qualifiers: Hypertension type: essential hypertension Qualified Code(s): I10 - Essential (primary) hypertension (6) DVT prophylaxis Priority: Secondary Status: Acute Hospital course: Mr. Gomez is a 67 year old male with past medical history of CAD status post CABG, diabetes, hypertension, CVA, ex-smoker, was admitted for generalized weakness in the setting of mild kidney injury. Cr slightly elevated at 1.45 which improved to 1.28 after IVF. Potentially due to his poor oral intake and polyuria from hyperglycemia. A1c 7.7. He also had a repeat echocardiogram (as the last one was about ~ 1 year ago which showed low normal EF) and did not show any significant changes from his previous one. He was evaluated by PT prior the discharge and was deemed safe to return to prior setting. Discharge discussed with: patient - Time Spent with Patient Total time spent providing and/or coordinating discharge services: Greater than 30 minutes - Discharge Medications Home Medications: Albuterol Sulfate [Proventil Hfa] 2 puff IH Q4H PRN 05/08/15 [History] Aspirin Enteric Coated [Aspirin EC] 81 mg PO DAILY 05/08/15 [History] Colchicine [Colcrys] 0.6 mg PO TID PRN 05/08/15 [History] Pantoprazole Sodium [Protonix] 40 mg PO QAM 05/08/15 [History] Glimepiride [Amaryl] 4 mg PO BID 11/18/15 [History] Insulin DETEMIR [Levemir Flextouch] 50 unit SQ HS 07/12/16 [History] Budesonide/Formoterol 160/4.5 [Symbicort 160/4.5] 2 puff IH BIDR 12/20/16 [ History] Ranitidine HCl [Heartburn Relief] 150 mg PO BID 12/20/16 [History] Gabapentin [Neurontin] 600 mg PO TID 02/28/17 [History] Fluticasone Propionate Nasal [Flonase] 50 mcg NS BID 09/30/17 [History] Insulin ASPART [Novolog Flexpen] 14 unit SQ QAM 09/30/17 [History] Montelukast [Singulair] 10 mg PO DAILY 09/30/17 [History] Clopidogrel [Plavix] 75 mg PO DAILY #30 tablet 12/02/17 [Rx] Allopurinol [Zyloprim 100 MG] 100 mg PO DAILY 05/08/18 [History] Cetirizine HCl [Zyrtec] 10 mg PO DAILY 05/08/18 [History] Cholecalciferol (D-3) [Vitamin D] 1,000 unit PO DAILY 05/08/18 [History] Insulin ASPART [Novolog Flexpen] 14 unit SQ 1200 05/08/18 [History] Insulin ASPART [Novolog Flexpen] 22 unit SQ QPM 05/08/18 [History] Losartan [Cozaar] 25 mg PO DAILY 05/08/18 [History] Metoprolol Succinate [[place] Sprinkle] 12.5 mg PO DAILY 05/08/18 [History] Zolpidem [Ambien] 5 mg PO HS 05/08/18 [History] Allergies/Adverse Reactions: 3 Allergy/AdvReac Type Severity Reaction Status Date / Time niacin AdvReac Unknown [place] Verified 05/08/18 12:20 nitroglycerin AdvReac Unknown Hypotension Verified 05/08/18 12:20 Oxycodone AdvReac Unknown Agitated Verified 05/08/18 12:20 Penicillins AdvReac Unknown Hives Verified 05/08/18 12:20 AMANDO Inhibitors AdvReac Cough Verified 05/08/18 12:20 atorvastatin AdvReac Diarrhea Verified 05/08/18 12:20 ezetimibe [From Zetia] AdvReac Dizziness Verified 05/08/18 12:20 simvastatin AdvReac Dizziness Verified 05/08/18 12:20 Date of admission: 05/07/18 17:01 Primary care physician: Berta Perez Consults: 05/08/18 08:50 Consult to Physical Therapy [CONS] Routine Comment: Evaluate, develop and implement POC Reason for Consult: Sl unsteady on feet. Does patient have active BEDREST order?: No Is patient medically & hemodynamically stable?: Yes Patient assessed for mobility or mobilized this visit?: Yes - Constitutional Vitals: Temp Pulse Resp BP Pulse Ox 98.5 F 68 15 157/76 96 05/08/18 14:35 05/08/18 14:35 05/08/18 14:35 05/08/18 14:35 05/08/18 14:35 Exam: General: Alert and oriented, not in acute distress. Cardiovascular:Normal S1 & S2, No JVD. Pulse regular. No LE edema Lungs: clear to auscultation, no wheezes/rales Abdomen:Soft, non-tender, no rigidity. Extremities:No deformity or swelling Neurological: CN II-XII intact, power and sensation fully intact in all 4 limbs. No cerebellar signs, pronator drift -ve, Babinski downgoing bilaterally. - Patient Status Disposition: Home, Self-Care Condition: Good Functional capacity at discharge: independent ambulation Overall status at discharge: patient is progressing back to baseline - Discharge Instructions Instructions: Diabetes Mellitus Type 2 in Adults (DC) Follow Up With: Berta Perez [Primary Care Provider] - - Diet and Activity Activity: resume usual activities as tolerated Diet: diabetic diet
[2018-05-08] MEDS ORDERED: Fluticasone Propionate Nasal 50 MCG/SPRAY BOTTLE NS SCH (21:00)
[2018-05-08] MEDS ORDERED: Famotidine 20 MG TABLET PO SCH (21:00)
[2018-05-08] MEDS ORDERED: Budesonide/Formoterol 160/4.5 1 PUFF INH IH SCH (22:00)
[2018-05-09] MEDS ORDERED: METOPROLOL SUCCINATE 12.5 MG PO SCH (09:00)
[2018-05-09] MEDS ORDERED: Loratadine 10 MG TABLET PO SCH (09:00)
[2018-05-09] MEDS ORDERED: Cholecalciferol (D-3) 1,000 UNIT TABLET PO SCH (09:00)
[2018-05-09] MEDS ORDERED: Aspirin Enteric Coated 81 MG Tablet PO SCH (09:00)
--- NOTE | 2018-05-09 17:40 | Electrocardiograph Report ---
[place] [id number] Test Date: 2018-05-07 Pat Name: James Gomez Department: [id number] Room: 3A53 Gender: M Pan Washer: : 1950 Requested By: [id number] Order Number: [id number] Reading MD: Kalpana Mensah Measurements Intervals [place] Rate: 65 P: 37 WA: 178 QRS: -4 QRSD: 124 T: 10 QT: 412 QTc: 429 Interpretive Statements Sinus rhythm IVCD Left ventricular hypertrophy Inferior infarct, old Electronically Signed On 05-09-2018 17:39:05 EDT by Kalpana Mensah
== END 2018-05-08 17:31 | disposition home or self-care (01) ==
LOC: 3ANU 11:55 → EMEROOARM 11:55 → SUATTDRO 17:01 → 3ANU 17:31
PROVIDERS: ADMIT Student in an Organized Health Care Education/Training Program; ATTEND Internal Medicine

== ENCOUNTER 2022-05-18 21:39 | Observation (INO) ==
[2022-05-19] MEDS ORDERED: Naloxone 0.4 MG/ML INJ IVP PRN (01:16)
[2022-05-19] MEDS ORDERED: Melatonin 3 MG TABLET PO PRN (01:16)
[2022-05-19] MEDS ORDERED: Ondansetron 4 MG/2 ML VIAL IVP PRN (01:16)
[2022-05-19] MEDS ORDERED: *HR* Heparin 5,000 UNIT/ML VIAL IVP PRN (02:07)
[2022-05-19] MEDS: Heparin 25,000UNIT/250ML 1/2NS 25,000 UNIT/250 ML IV.SOLN IVC SCH (02:41)
[2022-05-19] MEDS ORDERED: D5% in Water 1,000 ML IVC PRN (03:16)
[2022-05-19] MEDS ORDERED: *HR* Dextrose 50 % in Water (Syg) 50 ML SYRINGE IVP PRN (03:16)
[2022-05-19] MEDS ORDERED: Dextrose Gel 15 GM/37.5 ML TUBE PO PRN ×2 (03:16)
[2022-05-19] MEDS: Levalbuterol 1 PUFF INHALER IH SCH ×3 (03:39→22:46)
[2022-05-19 03:56] LABS: Basophils % 0.6 %; Eosinophils # 0.3 K/mcL (0.0-0.6); Eosinophils % 6.5 %; Hematocrit 41.8 % (37.5-50.1); Immature Granulocytes % 0.4 % (0-4); Lymphocytes # 1.4 K/mcL (0.6-4.6); Lymphocytes % 26.2 %; Mean Corpuscular HGB Conc 33.5 g/dL (31.6-35.5); Mean Corpuscular Hemoglobin 29.6 pg (28.0-33.3); Mean Corpuscular Volume 88.4 fL (83.0-100.0); Monocytes # 0.5 K/mcL (0.0-1.3); Monocytes % 9.7 %; Platelet Count 108 K/mcL (140-400); Red Blood Count 4.73 M/mcL (4.19-5.50); Red Cell Distribution Width 14.5 % (11.5-14.5); Segmented Neutrophils % 56.6 %; White Blood Count 5.3 K/mcL (4.3-11.1)
[2022-05-19 04:07] LABS: INR 1.2; Prothrombin Time 13.7 Seconds (9.4-12.1)
[2022-05-19 04:09] LABS: Estimated Average Glucose 166 mg/dl; Hemoglobin A1C 7.4 %
[2022-05-19 04:10] LABS: Activated Partial Thrombo Time 30.9 Seconds (26.0-36.0)
[2022-05-19 04:11] LABS: Heparin anti-factor XA UFH < 0.04 IU/mL (0.30-0.70)
[2022-05-19 04:13] LABS: Calcium 8.5 mg/dL (8.6-10.3); Potassium 3.6 mEq/L (3.5-5.1)
[2022-05-19 04:14] LABS: Chol/HDL Ratio 5.1 (0-4.9); Phosphorous 3.6 mg/dL (2.7-4.5)
[2022-05-19] MEDS: Insulin LISPRO 300 UNITS/3 ML VIAL SUBQ SCH ×3 (06:54→18:03)
[2022-05-19] MEDS: Cefepime HCl 2,000 MG in 0.9 % Sodium Chloride 10 ML IVP SCH ×2 (07:03→18:02)
[2022-05-19] MEDS: metroNIDAZOLE 500 MG TABLET PO SCH ×2 (09:16→19:33)
[2022-05-19] MEDS: Metoprolol XL (24 HR) Succ 25 MG TAB.ER.24H PO SCH (09:16)
[2022-05-19] MEDS: *HR* Heparin 5,000 UNIT/ML VIAL IVP PRN ×2 (09:17→18:03)
[2022-05-19] MEDS: Insulin DETEMIR 100 UNIT/ML X5UNITS SUBQ SCH ×2 (11:20→19:34)
[2022-05-19 19:03] VITALS: O2SAT 96
[2022-05-20] MEDS: Insulin LISPRO 300 UNITS/3 ML VIAL SUBQ SCH ×2 (00:41→06:43)
[2022-05-20] MEDS: Heparin 25,000UNIT/250ML 1/2NS 25,000 UNIT/250 ML IV.SOLN IVC SCH (01:51)
[2022-05-20 04:16] LABS: Basophils % 0.3 %; Eosinophils # 0.4 K/mcL (0.0-0.6); Eosinophils % 5.8 %; Hematocrit 43.4 % (37.5-50.1); Hemoglobin 14.1 g/dL (12.9-16.9); Immature Granulocytes % 0.6 % (0-4); Lymphocytes # 1.8 K/mcL (0.6-4.6); Lymphocytes % 28.8 %; Mean Corpuscular HGB Conc 32.5 g/dL (31.6-35.5); Mean Corpuscular Hemoglobin 29.2 pg (28.0-33.3); Mean Corpuscular Volume 89.9 fL (83.0-100.0); Mean Platelet Volume 12.6 fL (9.4-12.4); Monocytes # 0.7 K/mcL (0.0-1.3); Monocytes % 10.3 %; Neutrophils # 3.5 K/mcL (1.6-8.9); Platelet Count 120 K/mcL (140-400); Red Blood Count 4.83 M/mcL (4.19-5.50); Red Cell Distribution Width 14.5 % (11.5-14.5); Segmented Neutrophils % 54.2 %; White Blood Count 6.4 K/mcL (4.3-11.1)
[2022-05-20 04:36] LABS: Calcium 8.6 mg/dL (8.6-10.3)
[2022-05-20] MEDS: Cefepime HCl 2,000 MG in 0.9 % Sodium Chloride 10 ML IVP SCH (06:44)
[2022-05-20 07:19] VITALS: BP 129/79; PULSE 87; TEMP 97.5
[2022-05-20] MEDS: Metoprolol XL (24 HR) Succ 25 MG TAB.ER.24H PO SCH (08:10)
[2022-05-20] MEDS: Insulin DETEMIR 100 UNIT/ML X5UNITS SUBQ SCH (08:10)
[2022-05-20] MEDS: metroNIDAZOLE 500 MG TABLET PO SCH (08:10)
[2022-05-20] MEDS: Levalbuterol 1 PUFF INHALER IH SCH (09:24)
[2022-05-20] MEDS ORDERED: Flu Vac QV 22-23 (6MOS UP)/PF 0.5 ML SYRINGE IM ONE (09:29)
== END 2022-05-20 11:20 | disposition home or self-care (01) ==
LOC: 2ANU → SUATTDRO 05-19 00:49
PROVIDERS: ADMIT Internal Medicine; ATTEND Internal Medicine